=== PATIENT | female | born 1995 ===

== ENCOUNTER 2016-12-12 08:57 | Emergency (ER) | payer OTHER ==
[2016-12-12 09:10] VITALS: BP 157/82
--- NOTE | 2016-12-12 09:47 | UC ---
Mario Wilson Adam[facility] on 12/12/16 at 0901 . Dental HPI - HPI Summary HPI Summary: Nurse's Note: Pt states she thinks she has an infection tooth on the upper left side. pt states pain began 12/07/16 and has gotten worse. Pt denies fever. Pt states pain improved with medication. Pt states she see Dr. Butler in [place] for Dentistry. In Room: Pt has been having pain for the past 5 days around a tooth in the upper left side of her mouth. She states that she lost this tooth several years ago and her dentist Dr. Butler "reattached it". She believes that it is infected now. She has had numerous cavities in the past and she has a Hx of surgery for multi-carious teeth. Pt denies sinus pain, neck pain, ear ache. She denies any current or past problems with her gums. Negative PMHx. No FMHx of cardiac disease, DM, or anything else. Pt does not smoke. - History of Current Complaint Stated Complaint: DENTAL COMPLAINT Hx Obtained From: Patient Onset/Duration: Gradual Onset, Lasting Days, Still Present Severity: Moderate Aggravating: Nothing Alleviating: OTC Meds Related History: Previous Dental Care on Same Tooth - Allergies/Home Medications Allergies/Adverse Reactions: Allergies Allergy/AdvReac Type Severity Reaction Status Date / Time No Known Allergies Allergy Verified 12/12/16 09:10 Home Medications: Home Medications Ibuprofen [Advil] 2 tab PO PRN 12/12/16 [History] PMH/Surg Hx/FS Hx/Imm Hx - Surgical History Surgical History: Yes - For multi-carious teeth - Family History Known Family History: Positive: None Negative: Cardiac Disease, Diabetes - Social History Occupation: Student Lives: With Family - Grandmother Alcohol Use: None Substance Use Type: None Smoking Status (MU): Never Smoked Tobacco Review of Systems Constitutional: Negative ENT: Dental Pain - Upper left Musculoskeletal: Negative All Other Systems Reviewed And Are Negative: Yes Physical Exam Triage Information Reviewed: Yes Appearance: Well-Appearing, No Pain Distress, Well-Nourished Vital Signs: Initial Vital Signs Temp 97.5 F 12/12/16 09:02 Pulse 111 12/12/16 09:02 Resp 16 12/12/16 09:02 BP 157/82 12/12/16 09:02 Pulse Ox 100 12/12/16 09:02 Eyes: Positive: Conjunctiva Clear ENT: Positive: Hearing grossly normal, Pharynx normal, TMs normal. Negative: Muffled/hoarse voice Dental: Positive: Other: - LOCALIZED 1 CM SWELLING AND GINGIVAL INFLAMMATION ANTERIOR TO AND ABOVE TOOTH #9. Neck: Positive: Supple, No Lymphadenopathy Respiratory: Positive: Chest non-tender, Lungs clear, Normal breath sounds, No respiratory distress Cardiovascular: Positive: RRR, No Murmur Abdomen Description: Positive: Nontender, No Organomegaly, Soft Bowel Sounds: Positive: Present Musculoskeletal: Positive: Strength Intact, ROM Intact Neurological: Positive: Alert Psychological: Positive: Age Appropriate Behavior Skin: Negative: rashes Dental Complaint Course/Dx - Course Course Of Treatment: Patient will be started on Amoxicillin. - Differential Dx/Diagnosis Provider Diagnoses: Periodontitis above tooth #9. Discharge - Discharge Plan Condition: Stable Disposition: HOME Prescriptions: Amoxicillin (*) 875 mg PO BID #20 tab MDD 2 Patient Education Materials: Cavity Preventive (For the teeth or gums) Additional Instructions: WE DISCUSSED: you have INFLAMMATION OF THE SOFT TISSUE ABOVE YOUR FRONT TOOTH. THIS MAY DEVELOP INTO AN ABSCESS AND NEEDS TO BE FOLLOWED CLOSELY. 1. WARM MOIST SOAKS TO THE AREA FOR 10 MINUTES , 6 TIMES A DAY. 2. WATCH FOR INCREASING SWELLING OR REDNESS OF FACE OR FEVER. 3. CALL YOUR DENTIST TO BE SEEN THIS WEEK 4. START AMOXICILLIN, 875MG, TWICE A DAY FOR 10 DAYS. The documentation as recorded by the Mario lambert Adam accurately reflects the service I personally performed and the decisions made by , Mina Yañez MD.
== END 2016-12-12 09:50 | disposition home or self-care (01) ==
LOC: UCEAST 08:57
DX: K05.30 Chronic periodontitis, unspecified (principal)
CPT/HCPCS: 99202; G0463

== ENCOUNTER 2017-05-17 18:51 | Emergency (ER) | payer OTHER ==
[2017-05-17 18:59] VITALS: BP 156/105
--- NOTE | 2017-05-17 20:01 | UC ---
Lesley Wilson Edward, scribed for Erik Carlisle MD on 05/17/17 at 1938 . Respiratory Complaint HPI - HPI Summary HPI Summary: 21 y/o female presents to [facility] c/o nonproductive cough that has lasted for about 6 days. Patient has had trouble sleeping at night due to the cough. Denies CP, wheezing, ear pain and rhinorrhea. PMHx asthma. - History of Current Complaint Chief Complaint: UCRespiratory Stated Complaint: COUGH Time Seen by Provider: 05/17/17 19:31 Hx Obtained From: Patient Hx Last Menstrual Period: 04/21/17 Onset/Duration: Lasting Days - Around 6 days Character: Cough: Nonproductive Associated Signs And Symptoms: Positive: Negative - CP, ear pain, and rhinorrhea. Negative: Wheezing - Allergies/Home Medications Allergies/Adverse Reactions: Allergies Allergy/AdvReac Type Severity Reaction Status Date / Time No Known Allergies Allergy Verified 05/17/17 18:59 Home Medications: Home Medications Loratadine [Claritin 10 MG CAP] 10 mg PO DAILY 05/17/17 [History Confirmed 05/17] PMH/Surg Hx/FS Hx/Imm Hx Previously Healthy: Yes Endocrine History: Other - Negative DM Other Endocrine History: . Cardiovascular History: Other - Negative Cardiac disease, HTN Other Cardiovascular History: . Respiratory History: Asthma, Other - Negative COPD Other Respiratory History: . - Surgical History Surgical History: Yes Surgery Procedure, Year, and Place: Oral Surgery- Tooth extraction, [place], [place], - Family History Known Family History: Negative: Cardiac Disease, Diabetes - Social History Lives: With Family Alcohol Use: None Substance Use Type: None Smoking Status (MU): Never Smoked Tobacco Household Exposure Type: Cigarettes Review of Systems Constitutional: Negative Skin: Negative Eyes: Negative ENT: Negative - Ear pain, rhinorrhea Respiratory: Cough - Nonproductive, Other - Negative wheezing Cardiovascular: Negative - CP Gastrointestinal: Negative Genitourinary: Negative Motor: Negative Neurovascular: Negative Musculoskeletal: Negative Neurological: Negative Psychological: Negative All Other Systems Reviewed And Are Negative: Yes Physical Exam Triage Information Reviewed: Yes Appearance: Well-Appearing, No Pain Distress Vital Signs: Initial Vital Signs Temp 99.6 F 05/17/17 18:52 Pulse 120 05/17/17 18:52 Resp 18 05/17/17 18:52 BP 156/105 05/17/17 18:52 Pulse Ox 100 05/17/17 18:52 Vital Signs Reviewed: Yes Eye Exam: Normal ENT: Positive: Normal ENT inspection - No rhinorrhea, Pharynx normal Neck: Positive: Supple, Nontender Respiratory: Positive: Wheezing - Bilateral scattered wheezing Cardiovascular: Positive: RRR Abdomen Description: Positive: Nontender, Soft Bowel Sounds: Positive: Present Musculoskeletal: Positive: Strength Intact, ROM Intact Neurological: Positive: Alert Psychological Exam: Normal Skin Exam: Normal UC Diagnostic Evaluation - Laboratory O2 Sat by Pulse Oximetry: 100 Respiratory Course/Dx - Course Course Of Treatment: Medications reviewed upon patient visit. - Differential Dx/Diagnosis Provider Diagnoses: BRONCHOSPASM Discharge - Discharge Plan Condition: Stable Disposition: HOME Prescriptions: Albuterol HFA INHALER* [Ventolin HFA Inhaler*] 2 puff INH Q4H PRN #1 mdi PRN Reason: Dyspnea Patient Education Materials: Bronchospasm (ED) Additional Instructions: FOLLOW UP WITH YOUR DOCTOR. GET RECHECKED FOR ANY WORSENING OF YOUR CONDITION OR QUESTIONS OR CONCERNS. The documentation as recorded by the Lesley lambert Edward accurately reflects the service I personally performed and the decisions made by me, Erik Carlisle MD.
== END 2017-05-17 19:50 | disposition home or self-care (01) ==
LOC: UCEAST 18:51
DX: J98.01 Acute bronchospasm (principal)
CPT/HCPCS: 99212; G0463